=== PATIENT | male | born 1945 | race Two or more races ===

== ENCOUNTER 2016-07-19 14:19 | Emergency (ER) | payer MEDICARE ==
[2016-07-19] MEDS ORDERED: IPRATROPIUM/ALBUTEROL (0.5MG/3MG) NEB INH ONE (14:37)
[2016-07-19] MEDS ORDERED: ALBUTEROL SULFATE (0.083%) 2.5 MG/3 ML NEB INH ONE (14:37)
[2016-07-19] MEDS ORDERED: METHYLPREDNISOLONE PF 125MG/VIAL IVP ONE (14:37)
[2016-07-19 14:59] LABS: BASO % 0.7 % (0-6); GRAN % 40.2 % (47-80); HEMATOCRIT 43.9 % (42.0-52.0); HEMOGLOBIN 13.5 gm/dl (14.0-18.0); LYMPH % 45.7 % (16-45); MEAN CELL VOLUME 101.6 fl (81-97); MEAN CORPUSCULAR HGB CONC 30.8 g/dl (32-36); MEAN PLATELET VOLUME 10.1 fl (7.4-10.4); MONO % 10.4 % (0-9); PLATELET COUNT 375 K/uL (130-400); RED BLOOD COUNT 4.32 M/uL (4.40-5.70); RED CELL DISTRIBUTION WIDTH 12.4 % (11.5-14.5); WHITE BLOOD COUNT W/O DIFF 9.9 K/uL (4.2-12.2)
--- NOTE | 2016-07-19 14:59 | Emergency Department Record ---
History of Present Illness - General Chief Complaint: Difficulty Breathing Stated Complaint: GURJIT Time Seen by Provider: 07/19/16 14:37 Source: Patient, Family Mode of Arrival: Wheelchair - History of Present Illness Initial Comments: patient presented to the ED via car and his home oxygen ran out 20 minutes ago while at the 's office and his pulse ox was in the 70"s in the parking lot of the ED. Son Kartik with him and wanted to borrow an oxygen tank to get him home and I explained to the son it will take more care to stabalize him now and it would be best to come into the ED for evaluation. After about 10 minutes of discussion we were able to get them to come in to the ED for stabilization and evaluation and treatment. We obtain medical record from Dr. Arzate's office. Afia was with the patient and he refused an ambulance and son was going to race him home for oxygen but Alessandra convinced the son to go to the ED to get oxygen faster. Yhis was a routine appointment and no new cough or illness per Afia. Patient confused per son with dementia for two years and repeats his questions all the time. Onset/Timin -: Minutes(s) Severity: Severe Consistency: Constant Known History Of: COPD Associated Symptoms: Diaphoresis Treatments Prior to Arrival: Oxygen - Related Data Home Oxygen Therapy: Yes Home Medications Medication Instructions Recorded Confirmed Last Taken Albuterol Sulfate [Proair Hfa] 1 - 2 puff IH .EVERY 4-6 HOURS PRN 07/19/1607/19 Unknown Amitriptyline HCl [Elavil] 10 mg PO BID 07/19/16 07/19/16 Unknown Atenolol 50 mg PO DAILY 07/19/16 07/19/16 Unknown Bupropion HCl 100 mg PO BID 07/19/16 07/19/16 Unknown Cholecalciferol (Vitamin D3) 50,000 unit PO WEEKLY 07/19/16 07/19/16 Unknown [Vitamin D] Donepezil HCl [Aricept] 5 mg PO QHS 07/19/16 07/19/16 Unknown Hydrocodone/Acetaminophen [Morenci 1 tab PO Q8H PRN 07/19/16 07/19/16 Unknown 7.5mg/325mg] Ipratropium/Albuterol Sulfate 1 - 2 puff IH QID 07/19/16 07/19/16 Unknown [Combivent] Ipratropium/Albuterol [Duoneb] 3 ml IH Q4H 07/19/16 07/19/16 Unknown Lactulose 10 gm PO BID 07/19/16 07/19/16 Unknown Lansoprazole [Prevacid] 30 mg PO DAILY 07/19/16 07/19/16 Unknown Lisinopril 10 mg PO DAILY 07/19/16 07/19/16 Unknown Montelukast Sodium [Singulair] 10 mg PO QHS 07/19/16 07/19/16 Unknown Morphine Sulfate 15 mg PO Q6H PRN 07/19/16 07/19/16 07/19/16 Mupirocin [Bactroban] 1 apply TP TID 07/19/16 07/19/16 Unknown Potassium Chloride [Klor-Con] 20 meq PO DAILY 07/19/16 07/19/16 Unknown Sertraline HCl [Zoloft] 100 mg PO DAILY 07/19/16 07/19/16 Unknown Triamterene/Hydrochlorothiazid 2 each PO DAILY 07/19/16 07/19/16 Unknown [Maxzide 37.5 mg-25 mg Tablet] Allergies Allergy/AdvReac Type Severity Reaction Status Date / Time No Known Drug Allergies Allergy Verified 07/19/16 14:36 Travel Screening - Travel/Exposure Within Last 30 Days Have you traveled within the last 30 days?: No Review of Systems ROS unobtainable: Other (gave us the history) Constitutional: Reports: As per HPI, Other (sweating). Denies: Chills, Fever, Malaise, Night sweats, Weakness, Weight change Eyes: Reports: As per HPI. Denies: Eye discharge, Eye pain, Photophobia, Vision change ENT: Reports: As per HPI. Denies: Congestion, Dental pain, Ear pain, Epistaxis , Hearing loss, Throat pain Respiratory: Reports: Wheezes Cardiovascular: Reports: As per HPI. Denies: Arrhythmia, Chest pain, Dyspnea on exertion, Edema, Murmurs, Orthopnea, Palpitations, Paroxysmal nocturnal dyspnea, Rheumatic Fever, Syncope Endocrine: Reports: As per HPI. Denies: Fatigue, Heat or cold intolerance, Polydipsia, Polyuria Genitourinary: Reports: As per HPI, Other (patient incontient of urine). Denies : Dysuria, Frequency, Hematuria, Incontinence, Retention, Testicular pain, Testicular mass, Urgency Musculoskeletal: Reports: As per HPI. Denies: Arthralgia, Back pain, Gout, Joint swelling, Myalgia, Neck pain Skin: Reports: As per HPI, Other (pale). Denies: Bruising, Change in color, Change in hair/nails, Lesions, Pruritus, Rash Neurological: Reports: As per HPI. Denies: Abnormal gait, Confusion, Headache, Numbness, Paresthesias, Seizure, Tingling, Tremors, Vertigo, Weakness Psychiatric: Reports: As per HPI, Anxiety. Denies: Auditory hallucinations, Depression, Homicidal thoughts, Suicidal thoughts, Visual hallucinations Hematological/Lymphatic: Reports: As per HPI. Denies: Anemia, Blood Clots, Easy bleeding, Easy bruising, Swollen glands Past Medical History - SOCIAL HISTORY Smoking Status: Former smoker Alcohol Use: Heavy Drug Use: None - RESPIRATORY Hx Respiratory Disorders: Yes Hx COPD: Yes - CARDIOVASCULAR Hx Cardio Disorders: Yes Hx Hypertension: Yes - NEURO Hx Neuro Disorders: Yes Comment:: dementia - GI Hx GI Disorders: No - Hx Genitourinary Disorders: No - ENDOCRINE Hx Endocrine Disorders: No - MUSCULOSKELETAL Hx Musculoskeletal Disorders: Yes Comment:: neck fusion - PSYCH Hx Psych Problems: No - HEMATOLOGY/ONCOLOGY Hx Hematology/Oncology Disorders: No Family Medical History Any Significant Family History?: No Physical Exam - General General Appearance: Severe distress Limitations: Altered mental status (because of hypoxia and dementia) - Head Head exam: Normal inspection Head exam detail: negative: Abrasion, Contusion, Antoine's sign, General tenderness - Eye Eye exam: Normal appearance, PERRL Pupils: Normal accommodation - ENT ENT exam: Normal exam, Mucous membranes moist, Normal external ear exam, Normal orophraynx, TM's normal bilaterally Ear exam: Normal external inspection. negative: External canal tenderness Nasal Exam: Normal inspection. negative: Discharge, Sinus tenderness Mouth exam: Normal external inspection, Tongue normal Teeth exam: Normal inspection. negative: Dental caries Throat exam: Normal inspection. negative: Tonsillar erythema, Tonsillar exudate - Neck Neck exam: Normal inspection, Full ROM. negative: Tenderness - Respiratory Respiratory exam: Decreased breath sounds, Respiratory distress, Wheezes - Cardiovascular Cardiovascular Exam: Normal heart sounds, Tachycardia - GI/Abdominal GI/Abdominal exam: Soft, Normal bowel sounds. negative: Tenderness - Rectal Rectal exam: Deferred - exam: Deferred - Extremities Extremities exam: Full ROM, Normal capillary refill, Other (pale). negative: Pedal edema, Tenderness - Back Back exam: Reports: Normal inspection, Full ROM, Tenderness (chronic low back pain and uses narcotics ). Denies: Muscle spasm, Rash noted - Neurological Neurological exam: Alert, Normal gait, Oriented X3, Reflexes normal - Psychiatric Psychiatric exam: Normal affect, Normal mood - Skin Skin exam: Dry, Intact, Normal color, Warm, Other (multiple low back surgeries) Course Vital Signs 07/19/16 07/19/16 14:29 14:42 Temperature 98.6 F Pulse Rate 147 H Pulse Rate [ 137 H Pulse Ox Probe] Respiratory 28 H 32 H Rate Blood Pressure 189/120 Pulse Ox 95 98 patient improved after neb treatment and oxygen therapy - Reevaluation(s) Reevaluation #1: now present and he is getting back to his baseline. Patient alert and oriented to name and location but not date which the states is typical. 07/19/16 15:05 07/19/16 15:17 Reevaluation #2: st 07/19/16 15:[address] Arzate or Afia monthly for his chronic back pain and his COPD home oxygen for 9 years and he stopped smoking 4 years ago. Reevaluation #3: and patient state he will not stay and when he is going to he wants to be at home. patient currently back to baseline and stable. Risks discussed with the . 07/19/16 15:27 Medical Decision Making - Data Complexity MDM Data: Labs Ordered and/or Reviewed, X-Ray Ordered and/or Reviewed - Lab Data Result diagrams: 07/19/16 14:40 07/19/16 14:40 Disposition Clinical Impression: Hypoxia COPD (chronic obstructive pulmonary disease) Qualifiers: COPD type: COPD with acute exacerbation Qualified Code(s): J44.1 - Chronic obstructive pulmonary disease with (acute) exacerbation Disposition: Home, Self-Care Condition: (1) Good Instructions: Dyspnea (ED), Chronic Obstructive Pulmonary Disease (ED) Additional Instructions: use oxygen at 5 liters per minute and son kartik went home to get his oxygen tank. Forms: Patient Portal Access Time of Disposition: 15:29
[2016-07-19 15:00] LABS: MEAN CORPUSCULAR HEMOGLOBIN 31.2 pg (27-33)
[2016-07-19 15:10] LABS: ANION GAP 15.8 (7-16); BLOOD UREA NITROGEN 9 mg/dL (9-20); CARBON DIOXIDE 33.2 mmol/L (22-30); CREATININE 0.6 mg/dL (0.66-1.25); EST GLOMERULAR FILTRATION RATE > 60 ml/min; GLUCOSE,RANDOM 125 mg/dL (70-110)
--- NOTE | 2016-07-21 09:04 | RADIOLOGY REPORT ---
EXAM: PORTABLE CHEST HISTORY: SHORTNESS OF BREATH FOR ONE DAY. COPD HISTORY. TECHNIQUE: A single mobile upright view of the chest was obtained. FINDINGS: The heart is at the upper limits of normal in size. There is borderline pulmonary venous hypertension. Multiple small calcified nodules are scattered in each lung, most pronounced in the bases consistent with healed granulomatous disease. Subtle mixed primarily reticulonodular opacities are noted in the mid to lower left lung and right lung base. While this all may relate to chronic interstitial change, other etiologies such as edema or infiltrate cannot be excluded. No gross costophrenic angle blunting or pneumothorax is seen though the right lateral costophrenic angle is not entirely included on the image. There are degenerative changes of the visualized spine and shoulder girdles. An old healed fracture deformity of the posterolateral left fifth rib is demonstrated. IMPRESSION: 1. HYPERINFLATION OF THE LUNGS CONSISTENT WITH COPD. HEALED GRANULOMATOUS DISEASE SCATTERED IN EACH LUNG. 2. PATCHY MIXED OPACITIES IN THE MID TO LOWER LEFT LUNG AND RIGHT LUNG BASE, DISCUSSED ABOVE. 3. BORDERLINE CARDIOMEGALY WITH BORDERLINE PULMONARY VENOUS HYPERTENSION. JOB NUMBER: [id number] [facility]
== END 2016-07-19 16:00 | disposition home or self-care (01) ==
LOC: ER 14:19
DX: J44.1 Chronic obstructive pulmonary disease with (acute) exacerbation (principal); R09.02 Hypoxemia; I10 Essential (primary) hypertension; Z87.891 Personal history of nicotine dependence; F03.90 Unspecified dementia, unspecified severity, without behavioral disturbance, psychotic disturbance, mood disturbance, and anxiety
CPT/HCPCS: 71010; 80048; 85025; 94640; 96374; 99284; J2930; J7613